=== PATIENT | female | born 1955 | race Hispanic/Latino ===

== ENCOUNTER → 2019-07-09 | Outpatient (CLI) | payer OTHER ==
[~2019-07-09] MED LIST: ALBU1.252 IH; ASPI-555 PO; ATOR40TA71 PO; DAPA10TA PO; FLUT1AER IH; METF-446 PO; MONT10TA24 PO; TRIA1CAP6 PO; VENL75TA63 PO
== END | disposition home or self-care (01) ==
LOC: RAH 14:05
PROVIDERS: ATTEND Internal Medicine
DX: Z13.6 Encounter for screening for cardiovascular disorders (principal)
CPT/HCPCS: 75571